=== PATIENT | female | born 2000 | race Two or more races ===

== ENCOUNTER 2025-03-19 22:31 | Emergency (ER) | payer OTHER ==
[~2025-03-19] VITALS: Ht 167.6 cm; Wt 68.0 kg
[2025-03-19] MEDS ORDERED: PRENATA CHEWAB1 EACH PO (23:22)
[2025-03-19] MEDS ORDERED: GUAIFENESIN 200 MG/10 ML BLIST.PACK PO STA (23:36)
[2025-03-19] MEDS ORDERED: CETIRIZINE HCL 5 MG/5 ML ML PO STA (23:36)
[2025-03-19] MEDS ORDERED: CETIRIZINE HCL 5MG/5ML BLIST.PACK PO ONE (23:47)
[2025-03-19] MEDS ORDERED: GUAIFENESIN 200 MG/10 ML BLIST.PACK PO ONE (23:47)
[2025-03-20 00:22] LABS: BASO % 0.5 % (0.1-1.2); EOS # 0.02 (0.04-0.54); EOS % 0.5 % (0.7-7.0); LYMPH # 0.46 (1.18-3.74); LYMPH % 11.9 % (19.3-53.1); MEAN PLATELET VOLUME 8.80 fl (9.4-12.4); MONO # 0.40 (0.24-0.82); MONO % 10.3 % (4.7-12.5); NEUT # 2.96 (1.56-6.13); NEUT % 76.3 % (34.0-71.1); RED CELL DISTRIBUTION WIDTH 13.3 % (11.6-14.4)
[2025-03-20 01:09] LABS: COVID-19 AG NEGATIVE (NEGATIVE)
[2025-03-20] MEDS ORDERED: OSEL75CA PO (02:26)
[2025-03-20] MEDS ORDERED: ZYRTEC10 M3 PO (02:26)
== END 2025-03-20 03:33 ==
LOC: ER 22:32
PROVIDERS: General Practice
DX: O26.891 Other specified pregnancy related conditions, first trimester (principal); Z3A.10 10 weeks gestation of pregnancy; R05.8 Other specified cough; R51.9 Headache, unspecified; J10.1 Influenza due to other identified influenza virus with other respiratory manifestations; Z20.822 Contact with and (suspected) exposure to COVID-19